=== PATIENT | male | born 1950 | race Caucasian/White ===

== ENCOUNTER 2019-12-30 12:53 | Inpatient (IN) | payer MEDICARE, OTHER ==
--- NOTE | 2019-12-30 13:32 | RAD ---
RADIOGRAPH CHEST 1 VIEW: DATE: 12/30/2019 HISTORY: 69-year-old male with chest pain and dyspnea FINDINGS: There are no airspace densities, pulmonary edema, pneumothorax, or cardiomegaly. The lateral costophr enic angles are sharp. IMPRESSION: 1. No acute cardiopulmonary findings. 2. Status post coronary artery bypass graft surgery is evidence for coronary atherosclerotic disease.
[2019-12-30 13:38] LABS: #Basophils 0.1 thou/uL (0.0-0.2); #Eosinphils 0.1 thou/uL (0.0-0.7); #Lymphocytes 1.4 thou/uL (1.20-3.40); #Monocytes 0.9 thou/uL (0.11-0.59); #Neutrophils 8.9 thou/uL (1.40-6.50); %Basophils 0.8 % (0.0-1.0); %Eosinophils 0.5 % (0.0-10.0); %Lymphocytes 12.4 % (21.0-51.0); %Neutrophils 78.4 % (42.0-75.0); Hemoglobin 15.8 g/dL (14.0-18.0); Mean Corpuscular HGB CONC 32.7 g/dL (32.0-36.0); Mean Corpuscular Hemoglobin 32.4 pg (27.0-31.0); Mean Platelet Volume 8.2 fL (7.4-10.4); Platelet Count 244 thou/uL (130-400); RBC Distribution Width 11.7 % (11.5-14.5); Red Blood Cell (RBC) Count 4.86 mill/uL (4.70-6.10); White Blood Cell (WBC) Count 11.3 thou/uL (4.8-10.8)
[2019-12-30] MEDS ORDERED: Aspirin Chewable 81 MG TAB ONE ×2 (13:41→13:45)
[2019-12-30 14:00] LABS: ALT (SGPT) 92 U/L (8-55); AST (SGOT) 152 U/L (5-34); Albumin 4.2 g/dL (3.4-4.8); Alkaline Phosphatase 124 U/L (40-110); Anion Gap 13 mmol/L (10-20); BUN (Urea Nitrogen) 15 mg/dL (8.4-25.7); Bilirubin, Total 0.9 mg/dL (0.2-1.2); Calc. Creatinine Clearance 0 mL/min (70-130); Calcium 9.5 mg/dL (7.8-10.44); Carbon Dioxide 25 mmol/L (23-31); Chloride 106 mmol/L (98-107); Estimated GFR-MDRD 68; Globulin 2.2 g/dL (2.4-3.5); Glucose 126 mg/dL (80-115); Lipase 25 U/L (8-78); Potassium 4.3 mmol/L (3.5-5.1); Protein, Total 6.4 g/dL (5.8-8.1); Sodium 140 mmol/L (136-145)
[2019-12-30 15:00] LABS: Bacteria/HPF None Seen HPF (None Seen); Bilirubin Negative (Negative); Blood, Urine Trace (Negative); Clarity Clear (Clear); Glucose, Urine (Dipstick) Normal (Negative); Leukocyte Negative Leu/uL (Negative); Nitrite Negative (Negative); Protein, Urine (Dipstick) Negative (Neg-Trace); RBC/HPF 0-3 HPF (0-3); Squamous Epithelial 0-3 HPF (0-3); Urobilinogen Normal mg/dL (Less than 2); WBC/HPF 0-3 HPF (0-3)
[2019-12-30] MEDS ORDERED: Iopamidol 370 76% 50 ML VIAL FS ONE (15:00)
[2019-12-30] MEDS ORDERED: Iopamidol-370 76% 500 ML 1 ML ONE (15:00)
[2019-12-30] MEDS ORDERED: Nitroglycerin 2% Ointment 1 INCH/1 GM Packet ONE (16:00)
[2019-12-30] MEDS ORDERED: Senokot S 8.6-50 MG TAB PO PRN (16:20)
[2019-12-30] MEDS ORDERED: Acetaminophen 325 MG TAB PO PRN (16:20)
[2019-12-30] MEDS ORDERED: Nitroglycerin 0.4 MG TAB (25 Tab Bottle) SL PRN (16:24)
[2019-12-30] MEDS ORDERED: hydrALAZINE 20 MG/ML VIAL SLOW IVP PRN (16:25)
[2019-12-30] MEDS ORDERED: Sodium Chloride 0.9% 1,000 ML IV SCH (16:30)
[2019-12-30 16:41] LABS: Troponin I 0.011 ng/mL (< 0.028)
[2019-12-30 17:46] VITALS: BMI 31.8
--- NOTE | 2019-12-30 17:48 | HP ---
CHIEF COMPLAINT: Chest pain, abdominal pain. PRIMARY CARE PHYSICIAN: Dr. Watters. HISTORY OF PRESENT ILLNESS: Mr. Rivera is a very pleasant 69-year-old male, who reported to the emergency room today via EMS with chest pain that he reports radiates to the left arm, also complains of epigastric pain and also pain across the lower part of his abdomen. He reports that he does have a history of CABG x3 vessel, pancreatitis, had his gallbladder removed last year, and then subsequently developed some pancreatitis. He reports that the pain he is having in the lower part of his abdomen is reminiscent of the pancreatitis, but he denies any nausea or vomiting, denies any diaphoresis, denies any constipation or diarrhea. Troponin x2 is undetectable. He does, however, have some elevated AST, ALT, alkaline phosphatase, and elevated glucose at 126. Lipase is 25. Amylase is 66. White blood cell count is 11.3. Urine with a trace of blood. He reports that chest pain is intermittent, describes it as a tightening and got better after he was given nitroglycerin in the emergency room by EMS. He reports that he sees Dr. Navarro over in [place] and the last visit was in January 2019. He denies having an echocardiogram or stress test in the last year. He will be admitted to the observation unit for further management. REVIEW OF SYSTEMS: Reports chest pain. Reports radiation to the left arm. Denies any diaphoresis, shortness of breath, palpitations. Does report some abdominal pain, epigastric and lower. Denies any diarrhea, nausea, vomiting. All systems are reviewed and are negative unless mentioned above or in the HPI. PAST MEDICAL HISTORY: Pertinent for coronary artery disease, hyperlipidemia, hypertension. He reports that the right side of his diaphragm has not worked well since his bypass surgery. Pancreatitis. PAST SURGICAL HISTORY: CABG x3, cholecystectomy. PSYCHIATRIC HISTORY: None. SOCIAL HISTORY: Denies any alcohol use or drug use. No smoking history. Chews tobacco. KNOWN ALLERGIES: He reports an adverse reaction to narcotics, he prefers not to get them. CURRENT MEDICATIONS: These are in the emergency room, these still need to be reconciled. 1. Aspirin 81 mg once a day. 2. Fish oil 1200 mg p.o. b.i.d. 3. Hydrochlorothiazide 12.5 mg p.o. once a day. 4. Lisinopril 10 mg p.o. x2 tablets once a day. 5. Omeprazole 20 mg p.o. once a day in the morning. 6. Atorvastatin 40 mg p.o. once a day. 7. Zetia 10 mg p.o. once a day. PHYSICAL EXAMINATION: VITAL SIGNS: Blood pressure 167/72, pulse is 67, respirations are 18, temperature is 98.4, the O2 sats are 99% on room air. CONSTITUTIONAL: The patient is nontoxic appearing. He is alert and oriented to person, place, and time. HEAD: Atraumatic and normocephalic. EYES: Pupils are equally round and reactive to light. Extraocular muscles are intact. ENT: Mouth exam is normal. Mucous membranes are moist. NECK: Normal range of motion. Trachea is midline. RESPIRATORY: Breath sounds are clear. Chest expansion is equal. CARDIOVASCULAR: Regular heart rate and rhythm. Heart sounds are normal. ABDOMEN: Tender to the epigastric region. There is no distention. No peritoneal signs. BACK: Normal range of motion. No tenderness. EXTREMITIES: Upper extremity; normal range of motion, normal strength, radial pulses are normal. Lower extremity; normal range of motion, motor strength is normal, pedal pulses are normal, there is no edema noted. NEURO: The patient is oriented to person, place, and time. Speech is normal. Cranial nerves 2 through 12 are grossly intact. SKIN: Warm, dry, normal in color on visualized skin. PSYCHIATRIC: He has a normal affect. He is oriented to person, place, and time. IMAGING STUDIES: EKG in the emergency room shows sinus arrhythmia, beats per minute 66 with no ectopics, there are some Q-waves in V3 and aVF. Chest x-ray shows no acute cardiopulmonary findings, status post coronary artery bypass graft is evident for coronary atherotic disease. ASSESSMENT AND PLAN: 1. Chest pain with radiation to left arm with a nonspecific EKG. Troponin x2 is nonspecific and negative. We will check fasting lipids and TSH in the morning. Stress test in the a.m. 2. Abdominal pain with elevated liver enzymes. The patient reports that he had his gallbladder removed last year, but does not remember being told that his liver enzymes unremarkable, we do not have any lab since 2018. Recheck complete metabolic panel in a.m. We will hold Lipitor for now. CT scan with contrast has been ordered. We will check lipase in the a.m. Normal saline at 75 mL/hour x1 bag. 3. History of hypertension. We will restart home medications. 4. History of gastroesophageal reflux disease. We will have Pepcid b.i.d. 5. History of coronary artery disease, please see #1. 6. History of dyslipidemia. We will hold the atorvastatin and Zetia for now. Recheck complete metabolic panel in the a.m. 7. Deep venous thrombosis and gastrointestinal prophylaxis have been started. Case has been discussed with Dr. Hurst, who agrees with the plan. Hospital course is dependent on clinical findings. Job ID: [id number]
[2019-12-30] MEDS ORDERED: Ondansetron PF 4 MG/2 ML Vial IVP PRN (18:37)
--- NOTE | 2019-12-30 19:14 | CT ---
CT OF THE ABDOMEN AND PELVIS WITH IV CONTRAST INDICATION: Abdominal pain with history of pancreatitis COMPARISON: None FINDINGS: ABDOMEN: Lung bases: Clear Liver: No focal lesion. Gallbladder: Surgically absent Pancreas: Normal. Adrenal glands: Normal. Spleen: Normal. Kidneys and ureters: Normal. No hydronephrosis. Vasculature: There are moderate vascular calcifications seen involving the visualized vasculature. Lymph nodes:No lymphadenopathy. Free fluid in abdomen:No free fluid is evident. PELVIS: Small and large bowel: Colonic diverticulosis. Mild amount retained stool within the colon Appendix:Not definitely seen Bladder: Normal. Rectal and perirectal soft tissues:Normal. Reproductive structures: Normal. Free fluid in pelvis: No free fluid is evident. Lymphadenopathy pelvis: No lymphadenopathy is evident. Osseous structures: No acute osseous abnormality. No destructive osteolytic or osteoblastic lesion i s identified. There is scattered degenerative and osteoarthritic changes. Soft tissues:Normal. IMPRESSION: 1. No acute abnormality.
[2019-12-30 19:57] LABS: Troponin I Less than 0.010 ng/mL (< 0.028)
[2019-12-31 05:19] LABS: #Eosinphils 0.1 thou/uL (0.0-0.7); #Lymphocytes 1.5 thou/uL (1.20-3.40); #Monocytes 0.8 thou/uL (0.11-0.59); #Neutrophils 3.8 thou/uL (1.40-6.50); %Basophils 0.7 % (0.0-1.0); %Eosinophils 1.1 % (0.0-10.0); %Lymphocytes 23.9 % (21.0-51.0); %Monocytes 12.9 % (0.0-10.0); %Neutrophils 61.4 % (42.0-75.0); Hemoglobin 14.3 g/dL (14.0-18.0); Mean Corpuscular HGB CONC 32.7 g/dL (32.0-36.0); Mean Corpuscular Hemoglobin 32.1 pg (27.0-31.0); Mean Corpuscular Volume 98.3 fL (78.0-98.0); Mean Platelet Volume 8.5 fL (7.4-10.4); Platelet Count 245 thou/uL (130-400); RBC Distribution Width 11.8 % (11.5-14.5); Red Blood Cell (RBC) Count 4.45 mill/uL (4.70-6.10); White Blood Cell (WBC) Count 6.3 thou/uL (4.8-10.8)
[2019-12-31 06:58] LABS: ALT (SGPT) 458 U/L (8-55); AST (SGOT) 521 U/L (5-34); Albumin 3.6 g/dL (3.4-4.8); Alkaline Phosphatase 161 U/L (40-110); Anion Gap 11 mmol/L (10-20); BUN (Urea Nitrogen) 12 mg/dL (8.4-25.7); Bilirubin, Total 1.9 mg/dL (0.2-1.2); Calc. Creatinine Clearance 98 mL/min (70-130); Calcium 8.6 mg/dL (7.8-10.44); Carbon Dioxide 24 mmol/L (23-31); Cardiac Risk 3.3 (Less than 4.5); Chloride 107 mmol/L (98-107); Cholesterol 90 mg/dl (< 200 Desired); Estimated GFR-MDRD 79; Globulin 2.1 g/dL (2.4-3.5); Glucose 117 mg/dL (80-115); HDL Cholesterol 27 mg/dL (>60 Neg Risk); LDL Cholesterol, Calculated 48 mg/dL; Lipase 25 U/L (8-78); Protein, Total 5.7 g/dL (5.8-8.1); Sodium 138 mmol/L (136-145); Triglycerides 73 mg/dL (Less than 150)
[2019-12-31] MEDS ORDERED: Non-Formulary Item 1 EACH (Hydrochlorothiazide [Hydrochlorothiazide] 12.5 MG) PO SCH (09:00)
[2019-12-31] MEDS ORDERED: Non-Formulary Item 1 EACH (Omeprazole [Omeprazole] 40 MG) PO SCH (09:00)
[2019-12-31] MEDS ORDERED: Enoxaparin Sodium 40 MG/0.4 ML SYRINGE SC SCH (09:00)
[2019-12-31] MEDS: Hydrochlorothiazide 25 MG TAB PO SCH (09:40)
[2019-12-31] MEDS: Aspirin Chewable 81 MG TAB PO SCH (09:40)
[2019-12-31] MEDS: Lisinopril 20 MG TAB PO SCH (09:40)
--- NOTE | 2019-12-31 12:19 | PDOC.HOSPP ---
- Subjective Subjective: Seen and examined. Patient states that he had significant abdominal pain yesterday and points to his gallbladder area. He tells me that he has had his gallbladder removed and then afterwards have complication of pancreatitis. Patient no longer having abdominal pain or chest pain. Patient breathing comfortably on room air. Patient ambulate in the halls without difficulty. Patient states he's feeling hungry. - Objective Vital Signs & Weight: Vital Signs (12 hours) Temp Pulse Resp BP Pulse Ox 12/31/19 08:25 98.3 F 56 L 16 132/62 98 12/31/19 03:37 98 F 61 18 134/62 94 L Weight Weight 209 lb 5 oz I&O: 12/30/19 12/31/19 01/01/20 06:59 06:59 06:59 Intake Total 885 Balance 885 Result Diagrams: 12/31/19 04:59 12/31/19 04:59 Radiology Reviewed by me: Yes Hospitalist ROS - Review of Systems All other systems reviewed; all pertinent +/- noted in HPI/Subj - Medication Medications: Active Medications Generic Name Dose Route Start Last Admin Trade Name Freq PRN Reason Stop Dose Admin Aspirin 81 mg 12/31/19 09:00 12/31/19 09:40 Aspirin Chewable PO 81 mg DAILY GARRETT Administration Hydrochlorothiazide 12.5 mg 12/31/19 09:00 12/31/19 09:40 Hydrochlorothiazide PO 12.5 mg DAILY GARRETT Administration Lisinopril 20 mg 12/31/19 09:00 12/31/19 09:40 Zestril PO 20 mg DAILY GARRETT Administration Pantoprazole Sodium 40 mg 12/31/19 09:00 12/31/19 09:40 Protonix PO 40 mg DAILY GARRETT Administration Sodium Chloride 10 ml 12/30/19 16:20 12/30/19 21:11 Flush - Normal Saline IVF 10 ml PRN PRN Administration Saline Flush - Exam General Appearance: NAD, awake alert Eye: anicteric sclera ENT: normocephalic atraumatic, moist mucosa Neck: supple, symmetric, no lymphadenopathy Heart: no murmur, no gallops, no rubs Respiratory: CTAB, no wheezes, no rales, no ronchi, normal chest expansion, no tachypnea Gastrointestinal: soft, non-tender, non-distended, no palpable masses, no guarding, no rigidity Extremities: no edema Skin: no lesions, no rashes Neurological: cranial nerve grossly intact, no focal deficits Musculoskeletal: normal tone, normal strength Psychiatric: normal affect, normal behavior, A&O x 3 Hosp A/P (1) Abdominal pain Code(s): R10.9 - UNSPECIFIED ABDOMINAL PAIN Status: Acute (2) Chest pain Code(s): R07.9 - CHEST PAIN, UNSPECIFIED Status: Acute (3) Transaminitis Code(s): R74.0 - NONSPEC ELEV OF LEVELS OF TRANSAMNS & LACTIC ACID DEHYDRGNSE Status: Acute (4) HTN (hypertension) Code(s): I10 - ESSENTIAL (PRIMARY) HYPERTENSION Status: Acute (5) HLD (hyperlipidemia) Code(s): E78.5 - HYPERLIPIDEMIA, UNSPECIFIED Status: Acute (6) GERD (gastroesophageal reflux disease) Code(s): K21.9 - GASTRO-ESOPHAGEAL REFLUX DISEASE WITHOUT ESOPHAGITIS Status: Acute (7) Obesity (BMI 30.0-34.9) Code(s): E66.9 - OBESITY, UNSPECIFIED Status: Acute - Plan Plan: medical unit telemetry nuclear medicine stress test to rule out reversible ischemia continuous telemetry to monitor for arrhythmia concerning patient abdominal discomfort and elevated liver function tests: -MRCP to rule out choledocholithiasis -trend liver function tests -pending results patient may require gastroenterology consultation -patient not having any nausea or vomiting -no signs of pancreatitis -possible that the patient has past a retained stone from his biliary system which caused the pain and elevation in LFTs. Continue home medications as able blood pressure contro blood sugar control G.I. prophylaxis DVT prophylaxis
--- NOTE | 2019-12-31 12:38 | MRI ---
MRI abdomen noncontrast: DATE: 12/31/2019 HISTORY: 69-year-old male with intermittent abdominal pain. Status post cholecystectomy. Evaluate for retained stone. FINDINGS: There is a 5 x 6 x 8 mm calculus lodged in the inferior aspect of the common bile duct, very close to the ampulla of Vater. This is visualized on the standard MRI images, and on the single MRCP type MIP coronal reconstruction. The common bile duct, common hepatic duct, left and right hepatic ducts, and there branches, are normal in caliber for a 69-year-old. The liver, adrenals, pancreas, abdominal aorta, kidneys, and spleen, are normal. No upper retroperitoneal lymphadenopathy. (Pelvis w as not included). There is no pancreatic ductal dilation. IMPRESSION: Choledocholithiasis consisting of a single calculus at the distal most common bile duct at or near th e ampulla, but currently not causing high-grade biliary dilation.
[2019-12-31] MEDS ORDERED: ADENOSINE 60 MG/20 ML VIAL ONE (13:18)
--- NOTE | 2019-12-31 16:02 | NM ---
EXAM: Nuclear Medicine Cardiac SPECT with EF and wall motion: HISTORY: Chest pain, coronary artery disease, coronary bypass grafting Protocol: Exam was performed using adenosine protocol. The patient is injected with27.0 millicuries of technetium 99m sestamibi intravenously for stress kimberly ges. The patient is injected with9.5 millicuries of technetium 99 sestamibi intravenously for resting imag es. Multiple SPECT images are performed in the short axis, vertical long axis, and horizontal long axis. FINDINGS: No scan evidence for infarct or ischemia. TID:0.97 LHR:0.33 EDV:10 4 mL EF:62% Wall motion:Normal IMPRESSION: Normal cardiac SPECT with EF and wall motion.
--- NOTE | 2019-12-31 23:11 | CON ---
DATE OF CONSULTATION: 12/31/2019 CHIEF COMPLAINT: Abdominal pain. HISTORY OF PRESENT ILLNESS: Mr. Rivera is a 69-year-old man, who developed onset of a tightness in his substernal chest yesterday morning and it radiated toward his left arm. At the same time, he developed an aching pain across his lower abdomen. He went onto the emergency room for further care. The pain would come and go, would lasts for hours at a time and then go away. After last night in the emergency room, the pain went away and has not returned. He does report a prior history of gallbladder surgery around 4 years ago at [facility]. He states that a few days after he was sent home after his gallbladder surgery, he returned with acute pancreatitis. This was thought to be possibly due to gallstones as well. He does not recall seeing GI at the time. He had a CT scan of the abdomen and pelvis yesterday afternoon that was unremarkable. His liver tests were noted to have increased and he underwent MRI with MRCP that showed a moderate-sized stone in the common bile duct measuring 5 x 6 x 8 mm close to the ampulla of Vater. The bile duct otherwise was not significantly dilated per report. He also underwent a nuclear stress test due to the substernal tightness, which was normal. He has had normal bowel movements with brown stools twice today. No blood in the stool. 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 PAST SURGICAL HISTORY: Coronary artery bypass graft, cholecystectomy. He has had multiple colonoscopies for colon polyps by Dr. Adan. SOCIAL HISTORY: No alcohol or drugs. He does use smokeless tobacco daily for decades. FAMILY HISTORY: Negative for GI malignancy. ALLERGIES: NO KNOWN DRUG ALLERGIES. MEDICATIONS: Prior to admission, 1. Zetia. 2. Atorvastatin. 3. Omeprazole. 4. Lisinopril/hydrochlorothiazide. 5. Fish oil. 6. Aspirin. Current inpatient medications; 1. Enoxaparin. 2. Aspirin. 3. Lisinopril. 4. Pantoprazole. REVIEW OF SYSTEMS: Negative x10 systems reviewed, except as stated in history of present illness. PHYSICAL EXAMINATION: VITAL SIGNS: Temperature 97.4, pulse 54, and blood pressure 141/67. GENERAL: He is in no acute distress. He is alert and oriented x3. HEENT: Eyes have no scleral icterus. Oropharynx is clear without lesions. No cervical or supraclavicular lymphadenopathy. LUNGS: Clear to auscultation bilaterally. HEART: Regular rate and rhythm without murmur. ABDOMEN: Soft, nontender, and nondistended. Bowel sounds are present. EXTREMITIES: No lower extremity edema. His cranial nerves are grossly intact. LABORATORY DATA: Bilirubin is 1.9 today, up from 0.9 yesterday; AST 521, up from 152 yesterday; ALT 458 today, up from 92 yesterday; alkaline phosphatase 161 today, up from 124 yesterday. Albumin 3.6. Lipase 25. IMPRESSION: 1. Choledocholithiasis with biliary obstruction. There is no sign of cholangitis. His white blood cell count is normal at 6.3. He has had no fever or chills. He did have an episode of pancreatitis following his gallbladder surgery previously. MRI now shows a 6 x 5 x 8 mm stone in the common bile duct. 2. Coronary artery disease. RECOMMENDATIONS: ERCP tomorrow. I discussed the risks and benefits of the procedure in detail. I discussed risks including failure to cannulate, pancreatitis, bleeding, anesthesia risk, also in light of the diaphragm paralysis, also perforation. Job ID: [id number]
[2020-01-01 05:04] LABS: #Eosinphils 0.1 thou/uL (0.0-0.7); #Lymphocytes 1.6 thou/uL (1.20-3.40); #Monocytes 0.8 thou/uL (0.11-0.59); %Basophils 0.7 % (0.0-1.0); %Eosinophils 1.9 % (0.0-10.0); %Lymphocytes 28.6 % (21.0-51.0); %Monocytes 14.6 % (0.0-10.0); %Neutrophils 54.2 % (42.0-75.0); Hemoglobin 14.3 g/dL (14.0-18.0); Mean Corpuscular HGB CONC 31.5 g/dL (32.0-36.0); Mean Corpuscular Hemoglobin 30.4 pg (27.0-31.0); Mean Corpuscular Volume 96.6 fL (78.0-98.0); Mean Platelet Volume 8.1 fL (7.4-10.4); Platelet Count 235 thou/uL (130-400); RBC Distribution Width 11.7 % (11.5-14.5); Red Blood Cell (RBC) Count 4.69 mill/uL (4.70-6.10); White Blood Cell (WBC) Count 5.5 thou/uL (4.8-10.8)
[2020-01-01 05:26] LABS: ALT (SGPT) 590 U/L (8-55); AST (SGOT) 522 U/L (5-34); Albumin 3.8 g/dL (3.4-4.8); Alkaline Phosphatase 239 U/L (40-110); Anion Gap 13 mmol/L (10-20); BUN (Urea Nitrogen) 15 mg/dL (8.4-25.7); Bilirubin, Total 2.2 mg/dL (0.2-1.2); Calc. Creatinine Clearance 75 mL/min (70-130); Calcium 9.1 mg/dL (7.8-10.44); Carbon Dioxide 24 mmol/L (23-31); Chloride 107 mmol/L (98-107); Estimated GFR-MDRD 59; Globulin 2.3 g/dL (2.4-3.5); Glucose 137 mg/dL (80-115); Potassium 3.8 mmol/L (3.5-5.1); Protein, Total 6.1 g/dL (5.8-8.1); Sodium 140 mmol/L (136-145)
[2020-01-01] MEDS: Hydrochlorothiazide 25 MG TAB PO SCH (08:51)
[2020-01-01] MEDS: Lisinopril 20 MG TAB PO SCH (08:51)
[2020-01-01] MEDS: Aspirin Chewable 81 MG TAB PO SCH (08:51)
--- NOTE | 2020-01-01 09:27 | PDOC.HOSPP ---
- Subjective Encounter Date: 01/01/20 Encounter Time: 16:00 Subjective: Patient back from ERCP and stone removal. Tolerating liquid diet. Minimal abd discomfort, just a bit bloated. - Objective Vital Signs & Weight: Vital Signs (12 hours) Temp Pulse Resp BP Pulse Ox 01/01/20 07:38 97.6 F 57 L 18 146/67 H 96 01/01/20 03:42 97.5 F L 59 L 16 154/67 H 95 12/31/19 23:05 97.9 F 58 L 16 128/59 L 95 Weight Weight 206 lb 8 oz I&O: 12/31/19 01/01/20 01/02/20 06:59 06:59 06:59 Intake Total 885 1205 Output Total 350 Balance 885 855 Result Diagrams: 01/01/20 04:45 01/01/20 04:45 Hospitalist ROS - Review of Systems Constitutional: denies: fever, chills Respiratory: denies: cough, shortness of breath Cardiovascular: denies: chest pain, palpitations Gastrointestinal: denies: nausea, vomiting - Medication Medications: Active Medications Generic Name Dose Route Start Last Admin Trade Name Freq PRN Reason Stop Dose Admin Aspirin 81 mg 12/31/19 09:00 01/01/20 08:51 Aspirin Chewable PO 81 mg DAILY GARRETT Administration Enoxaparin Sodium 40 mg 12/31/19 09:00 12/31/19 15:50 Lovenox SC Not Given 0900 GARRETT Hydrochlorothiazide 12.5 mg 12/31/19 09:00 01/01/20 08:51 Hydrochlorothiazide PO 12.5 mg DAILY GARRETT Administration Lisinopril 20 mg 12/31/19 09:00 01/01/20 08:51 Zestril PO 20 mg DAILY GARRETT Administration Pantoprazole Sodium 40 mg 12/31/19 09:00 01/01/20 08:51 Protonix PO 40 mg DAILY GARRETT Administration Sodium Chloride 10 ml 12/30/19 16:20 12/31/19 19:52 Flush - Normal Saline IVF 10 ml PRN PRN Administration Saline Flush - Exam General Appearance: NAD, awake alert ENT: moist mucosa Heart: RRR, no murmur, no gallops, no rubs Respiratory: CTAB, no wheezes, no rales, no ronchi Gastrointestinal: soft, non-distended, normal bowel sounds Gastrointestinal - other findings: mild TTP ELIEL/RUQ, no guarding Extremities: no edema Psychiatric: normal affect, normal behavior, A&O x 3 Hosp A/P (1) Choledocholithiasis with obstruction Code(s): K80.51 - CALCULUS OF BILE DUCT W/O CHOLANGITIS OR CHOLECYST W OBST Status: Acute (2) Chest pain Code(s): R07.9 - CHEST PAIN, UNSPECIFIED Status: Resolved (3) GERD (gastroesophageal reflux disease) Code(s): K21.9 - GASTRO-ESOPHAGEAL REFLUX DISEASE WITHOUT ESOPHAGITIS Status: Chronic (4) HLD (hyperlipidemia) Code(s): E78.5 - HYPERLIPIDEMIA, UNSPECIFIED Status: Chronic (5) HTN (hypertension) Code(s): I10 - ESSENTIAL (PRIMARY) HYPERTENSION Status: Chronic (6) Obesity (BMI 30.0-34.9) Code(s): E66.9 - OBESITY, UNSPECIFIED Status: Chronic - Plan Stress test negative ERCP for stone removal done today, observe overnight, advance diet as tolerated , recheck LFTs, likely home in AM DVT Proph- Lovenox
[2020-01-01] MEDS ORDERED: Indomethacin 50 MG SUPP ONE (10:51)
[2020-01-01] MEDS ORDERED: Iothalamate Meglumine 60% 50 ML VIAL FS ONE (10:51)
[2020-01-01] MEDS ORDERED: cefTRIAXone\\ROCEPHIN 1 GM VIAL ONE (11:32)
[2020-01-01] MEDS ORDERED: Dexamethasone 20 MG/5 ML VIAL ONE (11:38)
[2020-01-01] MEDS ORDERED: PROPOFOL 200 MG/20 ML VIAL ONE (11:38)
[2020-01-01] MEDS ORDERED: Rocuronium Bromide 10 MG/ML (10ML VIAL) ONE (11:38)
[2020-01-01] MEDS ORDERED: Succinylcholine Chloride 20 MG/ML 10 ml SYRINGE FS ONE (11:38)
[2020-01-01] MEDS ORDERED: PHENYLEPHRINE-NS 100 MCG/ML 10 ML SYRINGE ONE (11:38)
[2020-01-01] MEDS ORDERED: Esmolol 100 MG/10 ML VIAL ONE (11:38)
[2020-01-01] MEDS ORDERED: Ondansetron PF 4 MG/2 ML Vial ONE (11:38)
[2020-01-01] MEDS ORDERED: Lidocaine 1% PF 5 ML VIAL ONE (11:38)
[2020-01-01] MEDS ORDERED: ePHEDrine/0.9% NaCl/PF SYRINGE 50 mg/10 ml ONE (11:38)
[2020-01-01] MEDS ORDERED: Promethazine HCl 25 MG/ML VIAL SLOW IVP PRN (11:47)
--- NOTE | 2020-01-01 14:21 | RAD ---
EXAM: XR ERCP PROVIDED CLINICAL HISTORY: Choledocholithiasis. COMPARISON: None FINDINGS/IMPRESSION: 8 intraoperative fluoroscopic images of the right upper quadrant are submitted for interpretation. Im ages demonstrate cannulation of the common duct with guidewire in place. Contrast within the overlying colon limits evaluation for filling defects related to calculus seen on prior imaging studi es within the distal common duct. Remainder of the opacified common duct as well as limited visualized intrahepatic ducts do not demonstrate definite filling defect. Subsequent imaging demonstr ates a balloon catheter in place within the common duct. Correlation with intraoperative findings is recommended.
[2020-01-01] MEDS: Lactated Ringer's 1,000 ML IV SCH (15:33)
--- NOTE | 2020-01-01 15:48 | OP ---
DATE OF PROCEDURE: 01/01/2020 PROCEDURES PERFORMED: Endoscopic retrograde cholangiopancreatography with sphincterotomy and balloon stone extraction. PREOPERATIVE DIAGNOSIS: Choledocholithiasis with biliary obstruction. DESCRIPTION OF PROCEDURE: Informed consent was obtained from the patient. He was sedated with general anesthesia. The duodenoscope was advanced easily to the second portion of the duodenum, where the ampulla was identified. There was a small ampulla opening. The common bile duct was selectively cannulated with a sphincterotome and guidewire. The guidewire was passed to the pancreatic duct twice. This is only a brief insertion in the distal duct. The patient did receive rectal indomethacin and bolus of lactated Ringer's prior to this procedure. Cholangiogram was performed, which revealed a distal common bile duct filling defect. The intrahepatic ducts were normal. The common bile duct was 9 mm with distal filling defect. A complete sphincterotomy was performed. There was good drainage of contrast and bile with a sphincterotomy. A 9-mm black pigment stone was extracted from the bile duct with the balloon. A 12-mm balloon passed easily through the sphincterotomy without resistance after the stone was extracted. The fluid was suctioned from the stomach. The procedure was completed without immediate complication. IMPRESSION: 1. Cholangiogram showing a 9-mm common bile duct and a distal filling defect. 2. Complete sphincterotomy performed. 3. A 9-mm black pigment stone was extracted from the duct. 4. Occlusion cholangiogram confirmed the duct to be clear and a 12-mm balloon passes easily through the sphincterotomy without resistance. RECOMMENDATIONS: 1. Follow trend of the liver tests. 2. Advance the diet after couple hours if he does not show signs of pancreatitis. 3. If he is doing well, he can be discharged home tomorrow. Job ID: [id number]
[2020-01-02] MEDS: Lactated Ringer's 1,000 ML IV SCH ×2 (02:08→07:42)
[2020-01-02 04:58] LABS: #Lymphocytes 1.3 thou/uL (1.20-3.40); #Neutrophils 9.5 thou/uL (1.40-6.50); %Basophils 0.2 % (0.0-1.0); %Eosinophils 0.2 % (0.0-10.0); %Monocytes 8.6 % (0.0-10.0); Hemoglobin 13.6 g/dL (14.0-18.0); Mean Corpuscular HGB CONC 32.5 g/dL (32.0-36.0); Mean Corpuscular Hemoglobin 31.4 pg (27.0-31.0); Mean Corpuscular Volume 96.6 fL (78.0-98.0); Mean Platelet Volume 8.4 fL (7.4-10.4); Platelet Count 234 thou/uL (130-400); RBC Distribution Width 11.7 % (11.5-14.5); Red Blood Cell (RBC) Count 4.32 mill/uL (4.70-6.10); White Blood Cell (WBC) Count 11.9 thou/uL (4.8-10.8)
[2020-01-02 05:16] LABS: ALT (SGPT) 527 U/L (8-55); AST (SGOT) 266 U/L (5-34); Albumin 3.7 g/dL (3.4-4.8); Alkaline Phosphatase 253 U/L (40-110); Anion Gap 12 mmol/L (10-20); BUN (Urea Nitrogen) 16 mg/dL (8.4-25.7); Bilirubin, Total 0.8 mg/dL (0.2-1.2); Calc. Creatinine Clearance 83 mL/min (70-130); Calcium 8.8 mg/dL (7.8-10.44); Carbon Dioxide 24 mmol/L (23-31); Chloride 105 mmol/L (98-107); Estimated GFR-MDRD 66; Globulin 2.2 g/dL (2.4-3.5); Glucose 143 mg/dL (80-115); Potassium 3.8 mmol/L (3.5-5.1); Protein, Total 5.9 g/dL (5.8-8.1); Sodium 137 mmol/L (136-145)
[2020-01-02] MEDS: Aspirin Chewable 81 MG TAB PO SCH (08:40)
[2020-01-02] MEDS: Hydrochlorothiazide 25 MG TAB PO SCH (08:40)
[2020-01-02] MEDS: Lisinopril 20 MG TAB PO SCH (08:40)
--- NOTE | 2020-01-02 09:26 | PDOC.HOSPP ---
- Subjective Encounter Date: 01/02/20 Encounter Time: 11:50 Subjective: Patient denies further N/V overnight. No abd pain. Eating normal breakfast this AM without difficulty. Doesn't really remember meeting me yesterday or anything after the ERCP due to medications given, but fully alert and oriented now. - Objective Vital Signs & Weight: Vital Signs (12 hours) Temp Pulse Resp BP Pulse Ox 01/02/20 08:00 97.6 F 60 19 135/63 95 01/02/20 02:13 69 16 111/52 L 94 L 01/01/20 23:10 98.3 F 65 16 124/57 L 94 L Weight Weight 206 lb 8 oz I&O: 01/01/20 01/02/20 01/03/20 06:59 06:59 06:59 Intake Total 1205 3796 Output Total 350 400 Balance 855 3396 Result Diagrams: 01/02/20 04:25 01/02/20 04:25 Hospitalist ROS - Review of Systems Constitutional: denies: fever, chills Respiratory: denies: cough, shortness of breath Cardiovascular: denies: chest pain, palpitations Gastrointestinal: denies: nausea, vomiting, abdominal pain - Medication Medications: Active Medications Generic Name Dose Route Start Last Admin Trade Name Freq PRN Reason Stop Dose Admin Aspirin 81 mg 12/31/19 09:00 01/02/20 08:40 Aspirin Chewable PO 81 mg DAILY GARRETT Administration Hydrochlorothiazide 12.5 mg 12/31/19 09:00 01/02/20 08:40 Hydrochlorothiazide PO 12.5 mg DAILY GARRETT Administration Lactated Ringer's 1,000 mls @ 125 mls/hr 01/01/20 15:15 01/02/20 07:42 Lactated Ringer's IV 1,000 mls .Q8H GARRETT Administration Lisinopril 20 mg 12/31/19 09:00 01/02/20 08:40 Zestril PO 20 mg DAILY GARRETT Administration Pantoprazole Sodium 40 mg 12/31/19 09:00 01/02/20 08:40 Protonix PO 40 mg DAILY GARRETT Administration Sodium Chloride 10 ml 12/30/19 16:20 12/31/19 19:52 Flush - Normal Saline IVF 10 ml PRN PRN Administration Saline Flush - Exam General Appearance: NAD, awake alert ENT: moist mucosa Heart: RRR, no murmur, no gallops, no rubs Respiratory: CTAB, no wheezes, no rales, no ronchi Gastrointestinal: soft, non-tender, non-distended, normal bowel sounds Extremities: no edema Musculoskeletal: normal tone, normal strength Psychiatric: normal affect, normal behavior, A&O x 3 Hosp A/P (1) Choledocholithiasis with obstruction Code(s): K80.51 - CALCULUS OF BILE DUCT W/O CHOLANGITIS OR CHOLECYST W OBST Status: Resolved (2) Chest pain Code(s): R07.9 - CHEST PAIN, UNSPECIFIED Status: Resolved (3) GERD (gastroesophageal reflux disease) Code(s): K21.9 - GASTRO-ESOPHAGEAL REFLUX DISEASE WITHOUT ESOPHAGITIS Status: Chronic (4) HLD (hyperlipidemia) Code(s): E78.5 - HYPERLIPIDEMIA, UNSPECIFIED Status: Chronic (5) HTN (hypertension) Code(s): I10 - ESSENTIAL (PRIMARY) HYPERTENSION Status: Chronic (6) Obesity (BMI 30.0-34.9) Code(s): E66.9 - OBESITY, UNSPECIFIED Status: Chronic - Plan Stress test negative ERCP for stone removal done yesterday, T.bili normalized. I spoke with Dr. Clemente, patient's GI doctor, and he cleared him to go home, said his office would call the patient to set up a follow up appointment and recheck his lab work. DVT Proph- Lovenox
[2020-01-02 11:40] VITALS: BP 133/60; TEMP 97.6
--- NOTE | 2020-01-03 05:49 | DIS ---
DATE OF ADMISSION: 01/01/2020 DATE OF DISCHARGE: 01/02/2020 PRIMARY CARE PHYSICIAN: Cb Watters MD REASON FOR ADMISSION: Chest and abdominal pain. DIAGNOSES AT DISCHARGE: 1. Choledocholithiasis with biliary obstruction, resolved. 2. Chest pain, resolved. 3. Gastroesophageal reflux disease. 4. Hyperlipidemia. 5. Hypertension. 6. Obesity. 7. Coronary artery disease. PROCEDURES: 1. CT of the abdomen and pelvis with IV contrast is showing no acute abnormality. 2. MRI of the abdomen without contrast and MRCP is showing choledocholithiasis, consisting of a single calculus in distal most common bile duct at or near the ampulla, but currently not causing high-grade biliary dilatation. 3. Nuclear medicine stress test is showing a normal wall motion and no evidence for infarct or ischemia. 4. Endoscopic retrograde cholangiopancreatography with sphincterotomy and balloon stone extraction with results of removal of a 9 mm common bile duct stone and occlusion cholangiogram confirming duct to be clear. CONSULTATIONS: Gastroenterology, Dr. Pedraza for Dr. Adan. SUMMARY OF HOSPITAL COURSE: This is a 69-year-old white male who came in via EMS with chest pain radiating to his left arm, also with epigastric pain radiating to the lower part of his abdomen. He has a history of a three vessel CABG. The patient had negative troponins in the hospital, but he did have elevated AST, ALT, and alkaline phosphatase. Eventually, his bilirubin is elevated as well. The patient had a CT and MRI as above. He did have a negative stress test for working up the chest pain. Chest pain resolved during the hospitalization, and he had some continued abdominal pain. Dr. Pedraza, consult on-call for Dr. Adan did see the patient and did an ERCP with successful removal of the biliary stone. The patient resumed had resolution of all of his symptoms after the ERCP. The next day, his bilirubin had normalized. He still had elevated AST, ALT, and alkaline phosphatase, but no nausea or vomiting. No abdominal pain. I did talk to the patient's primary parts control clerk, Dr. Adan, by the phone. He said that the patient was asymptomatic and that he could be discharged today and that his office will call in for a followup and again will repeat the liver function tests as an outpatient to make certain that they continue to trend down to normal. DISCHARGE MANAGEMENT: Discharged to home. FOLLOWUP: Follow up with Dr. Adan as indicated by his office. ACTIVITY: As tolerated. DIET: Low-fat diet. DISCHARGE MEDICATIONS: Resume all home medications. 1. Aspirin 81 mg daily. 2. Atorvastatin 40 mg daily. 3. Ezetimibe 10 mg daily. 4. Fish oil 1200 mg twice a day. 5. Hydrochlorothiazide 12.5 mg daily. 6. Lisinopril 20 mg daily. 7. Omeprazole 40 mg daily. TIME SPENT: Arranging the details of this discharge took 32 minutes. Job ID: [id number]
== END 2020-01-02 12:17 | disposition home or self-care (01) | DRG 446 ==
LOC: ERS 12:53 → 2SW 17:42 → OBSVTOIN 01-01 09:25
PROVIDERS: ADMIT Internal Medicine; ATTEND Internal Medicine
PROC: 0FC98ZZ Extirpation of Matter from Common Bile Duct, Via Natural or Artificial Opening Endoscopic (ICD-10-PCS; principal; 2020-01-01)
PROC: BF111ZZ Fluoroscopy of Biliary and Pancreatic Ducts using Low Osmolar Contrast (ICD-10-PCS; 2020-01-01)
DX: K80.51 Calculus of bile duct without cholangitis or cholecystitis with obstruction (principal); I25.10 Atherosclerotic heart disease of native coronary artery without angina pectoris; E78.5 Hyperlipidemia, unspecified; I10 Essential (primary) hypertension; R07.89 Other chest pain; K21.9 Gastro-esophageal reflux disease without esophagitis; R74.0 Nonspecific elevation of levels of transaminase and lactic acid dehydrogenase [LDH]; J98.6 Disorders of diaphragm; E66.9 Obesity, unspecified; Z68.31 Body mass index [BMI] 31.0-31.9, adult; Z95.1 Presence of aortocoronary bypass graft; Z90.49 Acquired absence of other specified parts of digestive tract
CPT/HCPCS: 36415; 71045; 74177; 74181; 74330; 78452; 80053; 80061; 81003; 81015; 82150; 83690; 84443; 84484; 85025; 93005; 93017; A9500; C1769; J0153; J0696; J1100; J2001; J2405; J2704; Q9967

== ENCOUNTER 2020-01-05 11:44 | Emergency (ER) | payer MEDICARE, OTHER ==
--- NOTE | 2020-01-05 12:46 | RAD ---
XR Chest 1 View Portable History: Reason For Study Comparison: None. Findings: Impression:
[2020-01-05 13:14] LABS: Hemoglobin 15.8 g/dL (14.0-18.0); Mean Corpuscular HGB CONC 33.2 g/dL (32.0-36.0); Mean Corpuscular Hemoglobin 32.5 pg (27.0-31.0); Mean Corpuscular Volume 97.6 fL (78.0-98.0); Mean Platelet Volume 7.9 fL (7.4-10.4); Platelet Count 220 thou/uL (130-400); RBC Distribution Width 11.9 % (11.5-14.5); Red Blood Cell (RBC) Count 4.88 mill/uL (4.70-6.10)
[2020-01-05 13:28] LABS: Band 11 % (5-11); Eosinophils 5 % (0-10); Lymphocytes 9 % (21-51); MDiff Complete? YES; Monocytes 20 % (0-10); Neutrophil 50 % (42-75); Platelet Morphology Comment Appears Adequate; RBC Morphology Normal; Reactive Lymphocytes 5 % (0-10)
[2020-01-05 13:39] LABS: ALT (SGPT) 266 U/L (8-55); AST (SGOT) 81 U/L (5-34); Albumin 4.5 g/dL (3.4-4.8); Alkaline Phosphatase 217 U/L (40-110); Anion Gap 13 mmol/L (10-20); BUN (Urea Nitrogen) 19 mg/dL (8.4-25.7); Bilirubin, Total 0.6 mg/dL (0.2-1.2); Calc. Creatinine Clearance 0 mL/min (70-130); Calcium 9.3 mg/dL (7.8-10.44); Carbon Dioxide 28 mmol/L (23-31); Chloride 101 mmol/L (98-107); Estimated GFR-MDRD 55; Globulin 2.5 g/dL (2.4-3.5); Glucose 80 mg/dL (80-115); Potassium 3.9 mmol/L (3.5-5.1); Sodium 138 mmol/L (136-145)
== END 2020-01-05 15:30 | disposition home or self-care (01) ==
LOC: ERS 11:44
DX: J20.8 Acute bronchitis due to other specified organisms (principal); J06.9 Acute upper respiratory infection, unspecified; I10 Essential (primary) hypertension; I25.10 Atherosclerotic heart disease of native coronary artery without angina pectoris; E78.5 Hyperlipidemia, unspecified; F17.220 Nicotine dependence, chewing tobacco, uncomplicated; Z79.82 Long term (current) use of aspirin; Z79.899 Other long term (current) drug therapy
CPT/HCPCS: 71045; 80053; 85025; 93005; 96360